=== PATIENT | male | born 1960 | race African-American/Black ===

== ENCOUNTER 2017-01-29 02:09 | Emergency (ER) | payer MEDICAID ==
[~2017-01-29] VITALS: Ht 185.4 cm; Wt 99.6 kg
[~2017-01-29 02:09] MED LIST: ALBU1.25 NEB; ALBU18HF BC; ALBU90AE INH; ASPI-496 PO; DOXY-168 PO; HYDR12.58 PO; PRED20TA PO; TIOT18CA INH
[2017-01-29] MEDS ORDERED: ALBUTEROL/IPRATROPIUM 2.5MG/0.5MG, 3 ML NPPB SCH (03:30)
[2017-01-29 03:34] LABS: HEMOGLOBIN 12.8 g/dL (13.7-18.0)
[2017-01-29 03:42] LABS: ASPARTATE AMINO TRANSFERASE 15 U/L (15-37); BLOOD UREA NITROGEN 15 mg/dL (7-18)
[2017-01-29] MEDS ORDERED: FUROSEMIDE 40 MG/4 ML ONE (04:15)
[2017-01-29] MEDS ORDERED: OXYcodone/APAP 5/325MG TABLET PO ONE (04:30)
[2017-01-29] MEDS ORDERED: FUROSEMIDE 40 MG TABLET PO ONE (04:30)
[2017-01-29] MEDS ORDERED: OXYcodone/APAP 5/325MG TABLET ONE (04:53)
[2017-01-29 05:00] VITALS: BP 151/96
== END 2017-01-29 05:11 | disposition home or self-care (01) ==
LOC: ED 04:46
DX: R60.0 Localized edema (principal); J45.901 Unspecified asthma with (acute) exacerbation; I10 Essential (primary) hypertension; J44.9 Chronic obstructive pulmonary disease, unspecified
CPT/HCPCS: 36415; 80053; 85025; 93005; 93970; 94640; 99285; J7512; J7620

== ENCOUNTER 2017-04-13 23:20 | Emergency (ER) | payer MEDICAID ==
[~2017-04-13] VITALS: Ht 185.4 cm; Wt 101.1 kg
[2017-04-14] MEDS ORDERED: SODIUM CHLORIDE FLUSH 10ML SYR IVF ONE (00:30)
[2017-04-14 00:34] LABS: ASPARTATE AMINO TRANSFERASE 19 U/L (15-37); BLOOD UREA NITROGEN 15 mg/dL (7-18)
[2017-04-14 00:41] LABS: IS PT STATUS REG ER OR PRE ER? YES
[2017-04-14 01:03] LABS: DIFF TOTAL CELLS COUNTED 100 CELL DIFF
[2017-04-14 01:08] LABS: VERIFY COUNTS? YES
[2017-04-14 01:09] LABS: LARGE PLATELETS 1+
[2017-04-14 01:15] VITALS: BP 158/101
== END 2017-04-14 01:17 | disposition home or self-care (01) ==
LOC: ED 04-14 01:11
DX: R07.89 Other chest pain (principal); R60.9 Edema, unspecified; J44.9 Chronic obstructive pulmonary disease, unspecified; E78.00 Pure hypercholesterolemia, unspecified; I10 Essential (primary) hypertension; I48.91 Unspecified atrial fibrillation
CPT/HCPCS: 36415; 71010; 80053; 83880; 84484; 85025; 85610; 85730; 93005; 99285

== ENCOUNTER 2017-08-31 02:48 | Emergency (ER) | payer BC, MEDICAID ==
[~2017-08-31] VITALS: Ht 185.4 cm; Wt 95.9 kg
[~2017-08-31 02:48] MED LIST changes: -DOXY-168 PO; +DOXY100T10 PO
[2017-08-31] MEDS ORDERED: ALBUTEROL/IPRATROPIUM 2.5MG/0.5MG, 3 ML ONE ×2 (03:11)
[2017-08-31] MEDS: SODIUM CHLORIDE 0.9% 1,000ML IVBOLUS ONE ×2 (03:15→03:32)
[2017-08-31] MEDS ORDERED: methylPREDNISolone SOD SUCC 125 MG/2 ML ONE (03:20)
[2017-08-31] MEDS: ALBUTEROL/IPRATROPIUM 2.5MG/0.5MG, 3 ML NPPB SCH ×2 (03:26→03:27)
[2017-08-31 03:28] LABS: HEMATOCRIT 39.8 % (39.2-51.8); HEMOGLOBIN 13.5 g/dL (13.7-18.0); WHITE BLOOD COUNT 6.2 x10^3/uL (3.4-10)
[2017-08-31 03:29] LABS: ASPARTATE AMINO TRANSFERASE 23 U/L (15-37); BLOOD UREA NITROGEN 12 mg/dL (7-18)
[2017-08-31] MEDS ORDERED: SODIUM CHLORIDE FLUSH 10ML SYR IVF ONE (03:30)
[2017-08-31] MEDS ORDERED: MAGNESIUM SULFATE PMX 2GM/50ML 50 ML IVPB ONE (03:30)
[2017-08-31] MEDS ORDERED: methylPREDNISolone SOD SUCC 125 MG/2 ML IVP ONE (03:30)
[2017-08-31 03:39] LABS: IS PT STATUS REG ER OR PRE ER? YES
[2017-08-31] MEDS ORDERED: HYDROmorphone 1 MG/ML, 1ML ONE (03:50)
[2017-08-31] MEDS ORDERED: ONDANSETRON 2MG/ML, 2ML ONE (03:51)
[2017-08-31] MEDS ORDERED: HYDROmorphone 2 MG/ML, 1ML IVPush PRN (04:00)
[2017-08-31 04:29] VITALS: BP 141/92
== END 2017-08-31 04:43 | disposition home or self-care (01) ==
LOC: ED 04:36
DX: J45.41 Moderate persistent asthma with (acute) exacerbation (principal); E78.00 Pure hypercholesterolemia, unspecified; I48.91 Unspecified atrial fibrillation; I10 Essential (primary) hypertension
CPT/HCPCS: 36415; 71010; 80053; 83880; 84484; 85025; 93005; 94640; 96365; 96375; 99291; J1170; J2930; J3475; J7030; J7620

== ENCOUNTER 2017-12-18 00:58 | Inpatient (IN) | payer BC, OTHER ==
[~2017-12-18] VITALS: Ht 185.4 cm; Wt 98.0 kg
[2017-12-18] MEDS ORDERED: ALBUTEROL/IPRATROPIUM 2.5MG/0.5MG, 3 ML ONE (02:09)
[2017-12-18] MEDS ORDERED: methylPREDNISolone SOD SUCC 125 MG/2 ML ONE (02:19)
[2017-12-18] MEDS ORDERED: SODIUM CHLORIDE 0.9% 1,000ML IVBOLUS ONE (02:30)
[2017-12-18] MEDS ORDERED: methylPREDNISolone SOD SUCC 125 MG/2 ML IVP ONE (02:30)
[2017-12-18] MEDS ORDERED: SODIUM CHLORIDE FLUSH 10ML SYR IVF ONE (02:30)
[2017-12-18 02:33] LABS: MEAN CORPUSCULAR HEMOGLOBIN 31.1 pg (27.5-34.5); MEAN CORPUSCULAR HGB CONC 33.5 g/dL (33.2-36.2); MEAN CORPUSCULAR VOLUME 92.8 fL (81-97); MEAN PLATELET VOLUME 8.6 fL (7.4-10.4); PLATELET COUNT 226 x10^3/uL (130-400); RED BLOOD COUNT 4.36 x10^6/uL (4.38-5.82); RED CELL DISTRIBUTION WIDTH 14.7 % (9.4-14.8)
[2017-12-18 02:41] LABS: ALANINE AMINOTRANSFERASE 22 U/L (12-78); ALBUMIN 3.4 g/dL (3.4-5.0); ANION GAP 8 mmol/L (5-15); CALCIUM 8.5 mg/dL (8.5-10.1); CHLORIDE 111 mmol/L (98-107)
[2017-12-18 02:43] LABS: MD YES
[2017-12-18 02:44] LABS: ALKALINE PHOSPHATASE 75 U/L (45-117); BILIRUBIN,TOTAL 0.4 mg/dL (0.2-1.0); CREATININE 0.93 mg/dL (0.7-1.3)
[2017-12-18 02:53] LABS: EOS#(MANUAL) 0.18 x10^3/uL (0.0-0.4); EOS% (MANUAL) 4 % (1-7); LYMPH#(MANUAL) 1.49 x10^3/uL (1-3.4); LYMPHS% (MANUAL) 33 % (22-44); MONOS#(MANUAL) 0.23 x10^3/uL (0.3-2.7); MONOS% (MANUAL) 5 % (2-9); REACTIVE LYMPHS # (MANUAL) 0.05 x10^3/uL (0-0); REACTIVE LYMPHS % (MANUAL) 1 % (0-0); SEG#(MANUAL) 2.57 x10^3/uL (1.8-6.8); SEGS% (MANUAL) 57 % (42-75)
[2017-12-18 02:54] LABS: <PLATELET ESTIMATE> ADEQUATE; <RBC MORPHOLOGY> NORMAL; LARGE PLATELETS 1+
[2017-12-18] MEDS ORDERED: ALBUTEROL SULFATE 2.5 MG/3 ML NPPB ONE (03:30)
[2017-12-18] MEDS ORDERED: AZITHROMYCIN 500 MG in SODIUM CHLORIDE 0.9% 250 ML IV ONE (03:30)
[2017-12-18 05:00] VITALS: BP 146/100
[2017-12-18] MEDS ORDERED: NS + 20MEQ KCL 1,000 ML IV SCH (06:18)
[2017-12-18] MEDS ORDERED: ALBUTEROL SULFATE 2.5 MG/3 ML NEB PRN (06:30)
[2017-12-18] MEDS ORDERED: morphine SULFATE 10 MG/ML, 1ML IVPush PRN (06:30)
[2017-12-18] MEDS ORDERED: ACETAMINOPHEN 325 MG TABLET PO PRN (06:30)
[2017-12-18] MEDS ORDERED: DOCUSATE 100 MG CAPSULE PO PRN (06:30)
[2017-12-18] MEDS ORDERED: POLYETHYLENE GLYCOL 17 GM PACKET PO PRN (06:30)
[2017-12-18] MEDS ORDERED: GUAIFENESIN/DM 200-20MG, 10ML UDC PO PRN (06:30)
[2017-12-18] MEDS ORDERED: ONDANSETRON 2MG/ML, 2ML IVPush PRN (06:30)
[2017-12-18] MEDS: HYDROcodone/APAP 5/325 TABLET PO PRN ×2 (07:17→20:48)
[2017-12-18] MEDS: ENOXAPARIN 40 MG/0.4 ML SQ SCH (07:17)
[2017-12-18 07:35] VITALS: BP 149/95
[2017-12-18] MEDS: ASPIRIN 81 MG TABLET EC PO SCH (07:36)
[2017-12-18] MEDS: HYDROCHLOROTHIAZIDE 12.5 MG CAPSULE PO SCH (07:37)
[2017-12-18] MEDS: ALBUTEROL SULFATE INH SCH (08:22)
[2017-12-18 12:41] VITALS: BP 156/99
[2017-12-18] MEDS: IPRATROPIUM 0.5 MG/2.5 ML INHA HHN SCH ×3 (14:04→21:00)
[2017-12-18] MEDS ORDERED: BUDE10.2 HHN (14:16)
[2017-12-18] MEDS ORDERED: CARV12.52 PO (14:16)
[2017-12-18] MEDS ORDERED: BENZ100C PO (14:16)
[2017-12-18] MEDS ORDERED: ATOR20TA9 PO (14:16)
[2017-12-18] MEDS: methylPREDNISolone SOD SUCC 125 MG/2 ML IVPush SCH ×2 (16:12→20:42)
[2017-12-18 20:35] VITALS: BP 145/87
[2017-12-19 00:58] VITALS: BP 142/83
[2017-12-19 01:04] VITALS: BP 106/69
[2017-12-19] MEDS: methylPREDNISolone SOD SUCC 125 MG/2 ML IVPush SCH ×3 (01:57→13:07)
[2017-12-19] MEDS: HYDROcodone/APAP 5/325 TABLET PO PRN ×2 (02:00→07:44)
[2017-12-19] MEDS: IPRATROPIUM 0.5 MG/2.5 ML INHA HHN SCH ×2 (02:49→09:00)
[2017-12-19 07:36] VITALS: BP 153/89
[2017-12-19] MEDS: ALBUTEROL SULFATE INH SCH (07:45)
[2017-12-19] MEDS: ENOXAPARIN 40 MG/0.4 ML SQ SCH (07:45)
[2017-12-19] MEDS: ASPIRIN 81 MG TABLET EC PO SCH (07:45)
[2017-12-19] MEDS: HYDROCHLOROTHIAZIDE 12.5 MG CAPSULE PO SCH (07:46)
[2017-12-19 12:57] VITALS: BP 152/86
== END 2017-12-19 14:09 | disposition home or self-care (01) | DRG 192 ==
LOC: ED 01:33 → EDIP 03:39 → 5SO 04:06 → 3NE 15:01
PROVIDERS: ADMIT Family Medicine; ATTEND Family Medicine
DX: J44.1 Chronic obstructive pulmonary disease with (acute) exacerbation (principal); I48.91 Unspecified atrial fibrillation; E78.00 Pure hypercholesterolemia, unspecified; E78.5 Hyperlipidemia, unspecified; I10 Essential (primary) hypertension; J02.9 Acute pharyngitis, unspecified; R06.03 Acute respiratory distress; Z87.891 Personal history of nicotine dependence; Z88.8 Allergy status to other drugs, medicaments and biological substances; Z82.49 Family history of ischemic heart disease and other diseases of the circulatory system; Z83.3 Family history of diabetes mellitus; Z80.9 Family history of malignant neoplasm, unspecified
CPT/HCPCS: 36415; 71046; 80053; 85025; 93005; 94640; 96365; 96375; J0456; J1650; J3480; J7644; J2930; J7030; J7050; J7512

== ENCOUNTER 2018-04-08 12:13 | Emergency (ER) | payer OTHER ==
[~2018-04-08] VITALS: Ht 185.4 cm; Wt 97.7 kg
[~2018-04-08 12:13] MED LIST changes: +ATOR20TA9 PO; +BENZ100C PO; +BUDE10.2 HHN; +CARV12.52 PO
[2018-04-08] MEDS ORDERED: ALBUTEROL/IPRATROPIUM 2.5MG/0.5MG, 3 ML NPPB PRN (14:30)
[2018-04-08] MEDS ORDERED: ALBUTEROL/IPRATROPIUM 2.5MG/0.5MG, 3 ML ONE ×2 (15:39→16:28)
[2018-04-08] MEDS ORDERED: ALBUTEROL SULFATE 2.5 MG/3 ML ONE (15:46)
[2018-04-08] MEDS ORDERED: POTASSIUM PO (16:18)
[2018-04-08] MEDS ORDERED: FLUT1AER INH (16:18)
[2018-04-08] MEDS ORDERED: ALBUTEROL/IPRATROPIUM 2.5MG/0.5MG, 3 ML NPPB ONE (16:30)
[2018-04-08] MEDS ORDERED: AZITHROMYCIN 500 MG TABLET PO ONE (17:00)
[2018-04-08] MEDS ORDERED: AZITHROMYCIN 500 MG TABLET ONE (17:05)
[2018-04-08 19:15] VITALS: BP 128/85
== END 2018-04-08 19:15 | disposition left against medical advice (07) ==
LOC: ED 18:00
DX: J44.1 Chronic obstructive pulmonary disease with (acute) exacerbation (principal); I10 Essential (primary) hypertension; Z87.891 Personal history of nicotine dependence
CPT/HCPCS: 71046; 93005; 94640; 99284; J7512; J7620

== ENCOUNTER 2018-05-25 05:14 | Emergency (ER) | payer OTHER ==
[~2018-05-25] VITALS: Ht 185.4 cm; Wt 104.0 kg
[~2018-05-25 05:14] MED LIST changes: +FLUT1AER INH; +POTASSIUM PO
[2018-05-25] MEDS ORDERED: methylPREDNISolone SOD SUCC 125 MG/2 ML ONE (05:26)
[2018-05-25] MEDS ORDERED: ALBUTEROL/IPRATROPIUM 2.5MG/0.5MG, 3 ML ONE (05:28)
[2018-05-25] MEDS ORDERED: methylPREDNISolone SOD SUCC 125 MG/2 ML IVP ONE (05:30)
[2018-05-25] MEDS ORDERED: SODIUM CHLORIDE 0.9% 1,000ML IVBOLUS ONE (05:30)
[2018-05-25] MEDS ORDERED: ALBUTEROL/IPRATROPIUM 2.5MG/0.5MG, 3 ML NPPB SCH (05:30)
[2018-05-25 05:47] LABS: MEAN CORPUSCULAR HEMOGLOBIN 31.2 pg (27.5-34.5); MEAN CORPUSCULAR HGB CONC 33.5 g/dL (33.2-36.2); MEAN PLATELET VOLUME 8.4 fL (7.4-10.4); PLATELET COUNT 232 x10^3/uL (130-400); RED BLOOD COUNT 4.44 x10^6/uL (4.38-5.82); RED CELL DISTRIBUTION WIDTH 14.4 % (9.4-14.8)
[2018-05-25 05:56] LABS: ALBUMIN 3.7 g/dL (3.4-5.0); ANION GAP 6 mmol/L (5-15); CALCIUM 8.9 mg/dL (8.5-10.1); CHLORIDE 111 mmol/L (98-107)
[2018-05-25 05:59] LABS: CREATININE 0.97 mg/dL (0.7-1.3)
[2018-05-25 06:14] LABS: BASOPHILS # (AUTO) 0.02 x10^3/uL (0-0.1); BASOPHILS % (AUTO) 1 % (0-1); EOSINOPHILS # (AUTO) 0.35 x10^3/uL (0-0.4); EOSINOPHILS % (AUTO) 7 % (1-7); LYMPHOCYTES # (AUTO) 1.15 x10^3/uL (1-3.4); LYMPHOCYTES % (AUTO) 23 % (22-44); MD SCAN; MONOCYTES # (AUTO) 0.45 x10^3/uL (0.2-0.8); MONOCYTES % (AUTO) 9 % (2-9); NEUTROPHILS % (AUTO) 60 % (42-75)
[2018-05-25 08:38] VITALS: BP 133/90
== END 2018-05-25 08:40 | disposition home or self-care (01) ==
LOC: ED 05:26
DX: J44.1 Chronic obstructive pulmonary disease with (acute) exacerbation (principal); I10 Essential (primary) hypertension
CPT/HCPCS: 36415; 71045; 80048; 82040; 85025; 93005; 94640; 96365; 99285; J2930; J7030; J7620